=== PATIENT | male | born 1965 | race Caucasian/White ===

== ENCOUNTER 2023-06-13 00:16 | Inpatient (IN) ==
--- NOTE | 2023-06-13 00:33 | Emergency Department Note ---
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 without intravenous contrast. CTDI is 37.51 mGy and DLP is 702.46 mGy-cm. Automated exposure control was utilized for the study. A dose lowering technique was utilized adhering to the principles of ALARA. COMPARISON: No relevant prior studies available. FINDINGS: The mandible is intact. Intact maxillary alveolus. The orbital rims and floors are intact. The intraorbital contents are grossly unremarkable. Intact nasal bones, nasal septum, and maxillary spines. The zygomatic arches and pterygoid processes are intact. RIGHT facial soft tissue swelling. Posterior scalp soft tissue swelling. IMPRESSION: No facial bone fracture. RIGHT facial soft tissue swelling. Posterior scalp soft tissue swelling. Electronically signed by: Issa Lopez MD 06/13/23 01:[address] 06/13/23 00:27 Exam(s): CT HEAD Without Contrast EXAM: CT Head Without Intravenous Contrast CLINICAL HISTORY: Reason for exam: Trauma. TECHNIQUE: Axial computed tomography images of the head/brain without intravenous contrast. CTDI is 37.51 mGy and DLP is 702.46 mGy-cm. Automated exposure control was utilized for the study. A dose lowering technique was utilized adhering to the principles of ALARA. COMPARISON: No relevant prior studies available. FINDINGS: No acute intracranial hemorrhage. No midline shift or mass effect. Posterior scalp soft tissue swelling. The territorial malave-white matter differentiation is maintained throughout. Age-related cerebral volume loss. Periventricular and subcortical white matter hypoattenuation, consistent with chronic microangiopathy. The visualized orbits appear grossly unremarkable. The calvarium is intact. The visualized paranasal sinuses and mastoid air cells are grossly clear. IMPRESSION: No acute intracranial hemorrhage, midline shift, or mass effect. Posterior scalp soft tissue swelling. Electronically signed by: Issa Lopez MD 06/13/23 01:[address] 06/13/23 00:27 Exam(s): CT L SPINE With Contrast IV Amt: 91 ML OPTIRAY 320 EXAM: CT Lumbar Spine With Intravenous Contrast CLINICAL HISTORY: Reason for exam: Trauma. TECHNIQUE: Axial computed tomography images of the lumbar spine with intravenous contrast. CTDI is 27.89 mGy and DLP is 1444.7 mGy-cm. Automated exposure control was utilized for the study. A dose lowering technique was utilized adhering to the principles of ALARA. CONTRAST: Patient received 91 ML OPTIRAY 320 of IV contrast COMPARISON: No relevant prior studies available. FINDINGS: The vertebral body heights are maintained. The lumbar lordosis is preserved. There is no spondylolisthesis. The posterior elements are maintained, without evidence of acute fracture. The pedicles are intact. Multilevel lumbar spondylosis and degenerative disc disease. IMPRESSION: No acute fracture or subluxation of the lumbar spine. Electronically signed by: Issa Lopez MD 06/13/23 01:[address] 06/13/23 00:27 Exam(s): CT T SPINE IV Amt: 91 ML OPTIRAY 320 EXAM: CT Thoracic Spine With Intravenous Contrast CLINICAL HISTORY: Reason for exam: Trauma. TECHNIQUE: Axial computed tomography images of the thoracic spine with intravenous contrast. CTDI is 27.89 mGy and DLP is 1444.7 mGy-cm. Automated exposure control was utilized for the study. A dose lowering technique was utilized adhering to the principles of ALARA. CONTRAST: Patient received 91 ML OPTIRAY 320 of IV contrast COMPARISON: No relevant prior studies available. FINDINGS: The vertebral body heights are maintained. The lumbar lordosis is preserved. There is no spondylolisthesis. The posterior elements are maintained, without evidence of acute fracture. The pedicles are intact. Multilevel lumbar spondylosis and degenerative disc disease. IMPRESSION: No acute fracture or subluxation of the lumbar spine. Electronically signed by: Issa Lopez MD 06/13/23 01:34 AM Discharge Plan Visit Data Chief Complaint: Confusion Stated Complaint: AMS, Fall ED Provider: Wilmer Deras Discharge Problem: Delirium tremens Patient Disposition: Admitted As Inpatient Discharge Instructions Interventions: ED Discharge Assessment Last Done: 06/13/23 04:19
[2023-06-13 00:47] LABS: iSTAT Creatinine 1.9 mg/dl (0.6-1.3); iSTAT Hemoglobin 15.6 g/dl (14.0-18.0); iSTAT Ionized Calcium 1.11 mmol/l (1.12-1.32); iSTAT Potassium 2.8 mmol/L (3.3-5.0)
[2023-06-13] MEDS: OPTIRAY 320 100ml IV ONE (01:06)
[2023-06-13 01:17] LABS: Albumin Globulin Ratio 1.2 (0.9-2); Albumin Level 4.5 gm/dl (3.4-5.0); BUN Creatinine Ratio 11.2 (10-20); Bilirubin,Total 1.9 mg/dl (0.2-1.0); Calcium 9.7 mg/dl (8.6-10.3); Creatinine Clr Calc Pharmacy 57.7 ml/min; Est GFR (African American) 48.4 ml/min; Est GFR (Non-African American) 41.7 ml/min; Globulin 3.8 gm/dl (2.5-4.0); Potassium 2.9 mmol/L (3.5-5.1); Total Protein 8.3 gm/dl (6.0-8.3)
[2023-06-13] MEDS: SODIUM CHLORIDE 0.9% 1,000 ML IV ONE (01:32)
--- NOTE | 2023-06-13 01:33 | CT Scan Report ---
Exam(s): CT C SPINE EXAM: CT Cervical Spine Without Intravenous Contrast CLINICAL HISTORY: Reason for exam: Trauma. TECHNIQUE: Axial computed tomography images of the cervical spine without intravenous contrast. CTDI is 37.51 mGy and DLP is 702.46 mGy-cm. Automated exposure control was utilized for the study. A dose lowering technique was utilized adhering to the principles of ALARA. COMPARISON: No relevant prior studies available. FINDINGS: The vertebral body heights are maintained. The craniocervical junction is intact. The atlanto-dens interval is maintained. The dens is intact. There is no spondylolisthesis. Multilevel cervical spondylosis and degenerative disc disease. Straightening of the cervical lordosis. The unenhanced neck soft tissues are grossly unremarkable. The visualized lung apices are grossly clear. IMPRESSION: No acute fracture or subluxation of the cervical spine. Electronically signed by: Issa Lopez MD 06/13/23 01:32 AM
--- NOTE | 2023-06-13 01:33 | CT Scan Report ---
Exam(s): CT HEAD Without Contrast EXAM: CT Head Without Intravenous Contrast CLINICAL HISTORY: Reason for exam: Trauma. TECHNIQUE: Axial computed tomography images of the head/brain without intravenous contrast. CTDI is 37.51 mGy and DLP is 702.46 mGy-cm. Automated exposure control was utilized for the study. A dose lowering technique was utilized adhering to the principles of ALARA. COMPARISON: No relevant prior studies available. FINDINGS: No acute intracranial hemorrhage. No midline shift or mass effect. Posterior scalp soft tissue swelling. The territorial malave-white matter differentiation is maintained throughout. Age-related cerebral volume loss. Periventricular and subcortical white matter hypoattenuation, consistent with chronic microangiopathy. The visualized orbits appear grossly unremarkable. The calvarium is intact. The visualized paranasal sinuses and mastoid air cells are grossly clear. IMPRESSION: No acute intracranial hemorrhage, midline shift, or mass effect. Posterior scalp soft tissue swelling. Electronically signed by: Issa Lopez MD 06/13/23 01:31 AM
--- NOTE | 2023-06-13 01:34 | CT Scan Report ---
Exam(s): CT L SPINE With Contrast IV Amt: 91 ML OPTIRAY 320 EXAM: CT Lumbar Spine With Intravenous Contrast CLINICAL HISTORY: Reason for exam: Trauma. TECHNIQUE: Axial computed tomography images of the lumbar spine with intravenous contrast. CTDI is 27.89 mGy and DLP is 1444.7 mGy-cm. Automated exposure control was utilized for the study. A dose lowering technique was utilized adhering to the principles of ALARA. CONTRAST: Patient received 91 ML OPTIRAY 320 of IV contrast COMPARISON: No relevant prior studies available. FINDINGS: The vertebral body heights are maintained. The lumbar lordosis is preserved. There is no spondylolisthesis. The posterior elements are maintained, without evidence of acute fracture. The pedicles are intact. Multilevel lumbar spondylosis and degenerative disc disease. IMPRESSION: No acute fracture or subluxation of the lumbar spine. Electronically signed by: Issa Lopez MD 06/13/23 01:33 AM
--- NOTE | 2023-06-13 01:35 | CT Scan Report ---
Exam(s): CT CHEST With Contrast IV Amt: 91 ML OPTIRAY 320 EXAM: CT Chest With Intravenous Contrast CLINICAL HISTORY: Reason for exam: Trauma. TECHNIQUE: Axial computed tomography images of the chest with intravenous contrast. CTDI is 27.89 mGy and DLP is 1444.7 mGy-cm. Automated exposure control was utilized for the study. A dose lowering technique was utilized adhering to the principles of ALARA. CONTRAST: Patient received 91 ML OPTIRAY 320 of IV contrast COMPARISON: No relevant prior studies available. FINDINGS: Lungs: Unremarkable. No mass. No consolidation. Pleural space: Unremarkable. No pneumothorax. No significant effusion. Heart: Unremarkable. No cardiomegaly. No significant pericardial effusion. No significant coronary artery calcifications. Bones/joints: Degenerative changes of the spine. No acute fracture. No dislocation. Soft tissues: Unremarkable. Vasculature: Atherosclerotic changes of the aorta. No thoracic aortic aneurysm. Lymph nodes: Unremarkable. No enlarged lymph nodes. IMPRESSION: No acute findings in the chest. Electronically signed by: Issa Lopez MD 06/13/23 01:34 AM
--- NOTE | 2023-06-13 01:35 | CT Scan Report ---
Exam(s): CT T SPINE IV Amt: 91 ML OPTIRAY 320 EXAM: CT Thoracic Spine With Intravenous Contrast CLINICAL HISTORY: Reason for exam: Trauma. TECHNIQUE: Axial computed tomography images of the thoracic spine with intravenous contrast. CTDI is 27.89 mGy and DLP is 1444.7 mGy-cm. Automated exposure control was utilized for the study. A dose lowering technique was utilized adhering to the principles of ALARA. CONTRAST: Patient received 91 ML OPTIRAY 320 of IV contrast COMPARISON: No relevant prior studies available. FINDINGS: The vertebral body heights are maintained. The lumbar lordosis is preserved. There is no spondylolisthesis. The posterior elements are maintained, without evidence of acute fracture. The pedicles are intact. Multilevel lumbar spondylosis and degenerative disc disease. IMPRESSION: No acute fracture or subluxation of the lumbar spine. Electronically signed by: Issa Lopez MD 06/13/23 01:34 AM
--- NOTE | 2023-06-13 01:36 | CT Scan Report ---
Exam(s): CT ABDOMEN + PELVIS With Contrast IV Amt: 91 ML OPTIRAY 320 EXAM: CT Abdomen and Pelvis With Intravenous Contrast CLINICAL HISTORY: Reason for exam: Trauma. TECHNIQUE: Axial computed tomography images of the abdomen and pelvis with intravenous contrast. CTDI is 27.89 mGy and DLP is 1444.7 mGy-cm. Automated exposure control was utilized for the study. A dose lowering technique was utilized adhering to the principles of ALARA. CONTRAST: Patient received 91 ML OPTIRAY 320 of IV contrast COMPARISON: No relevant prior studies available. FINDINGS: Lung bases: Unremarkable. No mass. No consolidation. ABDOMEN: Liver: Hepatic steatosis. Gallbladder and bile ducts: Unremarkable. No calcified stones. No ductal dilation. Pancreas: Unremarkable. No mass. No ductal dilation. Spleen: Unremarkable. No splenomegaly. Adrenals: Unremarkable. No mass. Kidneys and ureters: Unremarkable. No solid mass. No hydronephrosis. Stomach and bowel: Unremarkable. No obstruction. No mucosal thickening. PELVIS: Appendix: No findings to suggest acute appendicitis. Bladder: Unremarkable. No mass. Reproductive: Unremarkable as visualized. ABDOMEN and PELVIS: Intraperitoneal space: Unremarkable. No free air. No significant fluid collection. Bones/joints: Degenerative changes of the spine. No acute fracture. No dislocation. Soft tissues: Fat-containing bilateral inguinal hernias. Vasculature: Atherosclerotic changes of the aorta. No abdominal aortic aneurysm. Lymph nodes: Unremarkable. No enlarged lymph nodes. IMPRESSION: No acute findings in the abdomen or pelvis. Electronically signed by: Issa Lopez MD 06/13/23 01:35 AM
--- NOTE | 2023-06-13 01:37 | CT Scan Report ---
Exam(s): CT FACIAL Without Contrast EXAM: CT Maxillofacial Without Intravenous Contrast CLINICAL HISTORY: Reason for exam: Trauma. TECHNIQUE: Axial computed tomography images of the face without intravenous contrast. CTDI is 37.51 mGy and DLP is 702.46 mGy-cm. Automated exposure control was utilized for the study. A dose lowering technique was utilized adhering to the principles of ALARA. COMPARISON: No relevant prior studies available. FINDINGS: The mandible is intact. Intact maxillary alveolus. The orbital rims and floors are intact. The intraorbital contents are grossly unremarkable. Intact nasal bones, nasal septum, and maxillary spines. The zygomatic arches and pterygoid processes are intact. RIGHT facial soft tissue swelling. Posterior scalp soft tissue swelling. IMPRESSION: No facial bone fracture. RIGHT facial soft tissue swelling. Posterior scalp soft tissue swelling. Electronically signed by: Issa Lopez MD 06/13/23 01:36 AM
[2023-06-13 02:00] LABS: Base Excess VBG -3.3 mEq/L; HCO3 VBG 22 mmol/L; Oxygen Saturation VBG < 60.0 %; PCO2 VBG 40 mmHg (38-50); PO2 VBG 33 mmHg; pH VBG 7.35 (7.36-7.41)
[2023-06-13 02:06] LABS: Appearance Urine Clear (Clear); Bacteria Urine Automated Negative (Negative); Bilirubin Urine Negative (Negative); Blood Urine 3+ (Negative); Color Urine Yellow; Glucose Urine UA Negative (Negative); Ketones Urine 1+ (Negative); Leukocyte Esterase Urine Negative (Negative); Nitrite Urine Negative (Negative); Protein Urine 1+ (Negative); RBC Urine Automated 0-4 /hpf (0-4); Specific Gravity Urine > 1.045 (1.000-1.030); Urobilinogen Urine Negative (Negative); pH Urine 6.5 (4.5-7.5)
[2023-06-13 02:25] LABS: Basophils # (auto) 0.04 K/uL (0.00-0.20); Basophils % (auto) 0.4 %; Eosinophils # (auto) 0.06 K/uL (0.00-0.50); Eosinophils % (auto) 0.7 %; Hematocrit (blood only) 44.6 % (42.0-52.0); Hemoglobin 15.2 g/dl (14.0-18.0); Immature Granulocytes # (auto) 0.12 K/uL (0.01-0.20); Immature Granulocytes % (auto) 1.3 %; Lymphocytes # (auto) 1.02 K/uL (1.20-3.40); Lymphocytes % (auto) 11.1 %; Mean Corpuscular Hemoglobin 34.3 pg (25.0-34.0); Mean Corpuscular Hgb Conc 34.1 g/dL (32.0-36.0); Mean Corpuscular Volume 100.7 fL (80.0-100.0); Monocytes # (auto) 0.69 K/uL (0.11-0.59); Monocytes % (auto) 7.5 %; Platelet Count 58 K/uL (130-400); Platelet Estimate Decreased (Normal); RDW Coefficient of Variation 12.9 % (11.5-14.5); RDW Standard Deviation 47.8 fL (36.4-46.3); Red Blood Count 4.43 M/uL (4.70-6.10); White Blood Count 9.23 K/ul (4.8-10.8)
[2023-06-13] MEDS: POTASSIUM CHLORIDE CRTAB 20 MEQ TABCR PO STA (02:28)
[2023-06-13] MEDS: DIPHTHER/TETAN/PERTUS Vaccine (Tdap, Adol/Adult) 0.5mL IM ONE (02:29)
[2023-06-13 02:30] LABS: Amphetamines+Metham, Urine Neg (Neg); Barbiturates, Urine Neg (Neg); Benzodiazepine, Urine Neg (Neg); Cocaine, Urine Neg (Neg); MDMA (Ecstacy), Urine Neg (Neg); Marijuana, Urine Neg (Neg); Methadone, Urine Neg (Neg); Opiate, Urine Neg (Neg); Phencyclidine, Urine Neg (Neg)
[2023-06-13 02:49] LABS: INR 1.1 (0.9-1.1); Prothrombin Time 12.2 Seconds (9.0-12.0)
[2023-06-13 03:16] LABS: Thyroid Stimulating Hormone 5.929 uIu/ml (0.300-4.500)
[2023-06-13 03:17] LABS: Adenovirus PCR Not Detected (NotDetected); Bordetella parapertussis PCR Not Detected (NotDetected); Bordetella pertussis PCR Not Detected (NotDetected); Chlamydia pneumoniae PCR Not Detected (NotDetected); Coronavirus 229E PCR Not Detected (NotDetected); Coronavirus CoV-2 (COVID19)PCR Not Detected (NotDetected); Coronavirus HKU1 PCR Not Detected (NotDetected); Coronavirus NL63 PCR Not Detected (NotDetected); Coronavirus OC43PCR Not Detected (NotDetected); Human Metapneumovirus PCR Not Detected (NotDetected); Influenza A PCR Not Detected (NotDetected); Influenza B PCR Not Detected (NotDetected); Mycoplasma pneumoniae PCR Not Detected (NotDetected); Parainfluenza Virus 1 PCR Not Detected (NotDetected); Parainfluenza Virus 2 PCR Not Detected (NotDetected); Parainfluenza Virus 3 PCR Not Detected (NotDetected); Parainfluenza Virus 4 PCR Not Detected (NotDetected); Respiratory Syncytial VirusPCR Not Detected (NotDetected); Rhinovirus/Enterovirus PCR Not Detected (NotDetected)
[2023-06-13] MEDS: POTASSIUM CHLORIDE 20 MEQ in LACTATED RINGER'S 1,000 ML IV STA (03:17)
[2023-06-13] MEDS: THIAMINE HCL 100 MG in SYRINGE 9 ML IV STA (03:17)
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
[2023-06-13] MEDS: LACTATED RINGER'S 1,000 ML IV ONE (03:23)
[2023-06-13] MEDS ORDERED: oxyCODONE HCL IR 5 MG TAB (IMMEDIATE RELEASE) PO PRN (03:25)
[2023-06-13] MEDS ORDERED: LORazepam 0.5 MG TAB PO PRN (03:25)
[2023-06-13] MEDS ORDERED: PROMETHAZINE HCL 6.25 MG in SODIUM CHLORIDE 0.9% 50 ML IV PRN (03:25)
[2023-06-13] MEDS ORDERED: LORazepam 0.25 MG in SYRINGE 0.125 ML IV STA (03:28)
[2023-06-13] MEDS ORDERED: LORazepam 1 MG in SYRINGE 0.5 ML IV PRN ×2 (03:42→04:10)
[2023-06-13 03:48] LABS: T4 Free Thyroxine 0.9 ng/dl (0.61-1.60)
[2023-06-13] MEDS: LORazepam 1 MG/1 ML SYR ED Inj Use IV STA (04:02)
[2023-06-13] MEDS ORDERED: LORazepam 2 MG in SYRINGE 1 ML IV PRN ×2 (04:10→10:05)
[2023-06-13] MEDS ORDERED: Ativan IV Alcohol Withdrawal--Active Protocol IV PRN (04:10)
[2023-06-13] MEDS ORDERED: GABAPENTIN 1200MG ALCOHOL WITHDRAWAL LOAD PO STA (04:10)
[2023-06-13] MEDS ORDERED: GLUCOSE 40% GEL 15 GM TUBE PO PRN (04:18)
[2023-06-13] MEDS ORDERED: GLUCOSE 10 TAB/TUBE PO PRN (04:18)
[2023-06-13] MEDS ORDERED: GLUCAGON FOR INJ 1 MG VIAL SQ PRN (04:18)
[2023-06-13] MEDS ORDERED: CARBOHYDRATES FOR HYPOGLYCEMIA PO PRN (04:18)
[2023-06-13] MEDS ORDERED: DEXTROSE 50% 50 ML SYRINGE IV PRN (04:18)
[2023-06-13] MEDS: LORazepam 3 MG in SYRINGE 1.5 ML IV PRN (04:33)
[2023-06-13 04:47] LABS: Base Excess VBG -1.1 mEq/L; HCO3 VBG 23 mmol/L; Oxygen Saturation VBG 85.7 %; PCO2 VBG 34 mmHg (38-50); PO2 VBG 51 mmHg; pH VBG 7.43 (7.36-7.41)
[2023-06-13] MEDS: GABAPENTIN 600 MG TAB PO STA (04:52)
[2023-06-13] MEDS: METOPROLOL TARTRATE 1 MG/ML VIAL IV STA (05:06)
[2023-06-13] MEDS: LORazepam 1 MG in SYRINGE 0.5 ML IV ONE ×2 (05:18→05:36)
[2023-06-13] MEDS ORDERED: chlordiazePOXIDE ALCOHOL WITHDRAWL 50MG PO STA (05:34)
[2023-06-13] MEDS: diazePAM 5 MG/ML 10ML VIAL IV STA ×2 (05:40→05:50)
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
[2023-06-13] MEDS ORDERED: STAT IV Infusion **Titration per Protocol STA (06:37)
[2023-06-13] MEDS: dexMEDEtomidine 200 MCG/50 ML BAG IV SCH (06:51)
[2023-06-13] MEDS: LACTATED RINGER'S 1,000 ML IV SCH (06:52)
[2023-06-13 07:19] LABS: Estimated Average Glucose 128 mg/dl; Hemoglobin A1C 6.1 % (4.5-5.6)
[2023-06-13] MEDS: POTASSIUM CHLORIDE / WTR 10 MEQ/100 ML PLCT IV SCH (07:38)
[2023-06-13] MEDS: chlordiazePOXIDE HCl 25 MG CAP PO SCH (07:39)
[2023-06-13 08:02] LABS: Acetaminophen < 3 ug/ml (10-30); Salicylate < 3.0 mg/dl (3.0-30)
[2023-06-13 08:04] LABS: BUN Creatinine Ratio 13.8 (10-20); Calcium 9.1 mg/dl (8.6-10.3); Creatinine Clr Calc Pharmacy 88.6 ml/min; Est GFR (African American) 81.1 ml/min; Magnesium 1.5 mg/dl (1.7-2.4); Potassium 3.9 mmol/L (3.5-5.1)
[2023-06-13] MEDS: INSULIN ASPART PER UNIT CHARGE SC SCH ×2 (08:25→10:39)
[2023-06-13] MEDS: amLODIPine BESYLATE 5 MG TAB PO STA (08:25)
[2023-06-13] MEDS: LACTATED RINGER'S 500 ML IV ONE (08:26)
[2023-06-13] MEDS: MAGNESIUM SULFATE / D5W 1 GM/100 ML BAG IV SCH (08:29)
[2023-06-13] MEDS: SODIUM CHLORIDE 0.9% 500 ML IV ONE (09:30)
[2023-06-13 09:41] LABS: Bilirubin Direct 0.7 mg/dl (0-0.2)
[2023-06-13] MEDS: THIAMINE HCL 500 MG in SODIUM CHLORIDE 0.9% 50 ML IV SCH (09:59)
[2023-06-13] MEDS ORDERED: LORazepam 3 MG in SYRINGE 1.5 ML IV PRN (10:05)
[2023-06-13] MEDS: FOLIC ACID 1 MG TAB PO SCH (10:10)
[2023-06-13] MEDS ORDERED: GABAPENTIN 600 MG TAB PO SCH (10:15)
[2023-06-13] MEDS: FOLIC ACID 1 MG in SYRINGE 9.8 ML IV SCH (10:51)
[2023-06-13] MEDS: ALBUT/IPRATROP 3MG/0.5MG NEB 3 ML VIAL NEB STA (13:50)
[2023-06-13 14:08] LABS: iSTAT Arterial Blood Gas HCO3 25 meg/L (19-24); iSTAT Arterial Blood Gas pCO2 47 mmHg (35-46); iSTAT Arterial Blood Gas pH 7.33 (7.35-7.45); iSTAT Arterial Blood Gas pO2 37 mmHg (80-95); iSTAT Carbon Dioxide 26 mmol/L (24-31); iSTAT Hematocrit 33 % (42-52); iSTAT Hemoglobin 11.2 g/dl (14.0-18.0); iSTAT Potassium 3.4 mmol/L (3.3-5.0); iSTAT Sodium 139 mmol/L (135-144)
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
[2023-06-13] MEDS: diazePAM 5 MG/ML 10ML VIAL ONE (20:06)
--- NOTE | 2023-06-13 23:05 | Electroencephalogram ---
EEG Procedure Note Date of Service June 13, 2023 Start / End Times Start Time: 08:55 End Time: 09:15 Referring Physician Alex Jimenez History A 58 year old male with syncope. EEG performed for evaluation of epileptiform activity. Home Medication List Medication Instructions Recorded Confirmed Type aspirin 325 mg tablet 325 mg PO BID PRN .headache/pain 06/13/23 06/13/23 History Inpatient Medication List Dexmedetomidine/Sodium Chloride (Precedex) 200 mcg in 50 mls @ 7.523 mls/hr IV .Q6H39M [facility]; Protocol Stop: 06/17/23 06:44 Last Admin: 06/13/23 19:35 Dose: 0.3 mcg/kg/hr, 7.5 mls/hr Documented By: Dedrick Co-signed By: LILIA Titration: 06/13/23 19:35 Dose: Infused Documented By: Dedrick Co-signed By: LILIA Titration: 06/13/23 19:09 Dose: 0.3 mcg/kg/hr, 7.5 mls/hr Documented By: DAGOBERTO Co-signed By: [id number] Admin: 06/13/23 13:04 Dose: 0.3 mcg/kg/hr, 7.5 mls/hr Documented By: DAGOBERTO Co-signed By: CHICHO Titration: 06/13/23 13:04 Dose: Infused Documented By: DAGOBERTO Co-signed By: CHICHO Titration: 06/13/23 10:38 Dose: 0.3 mcg/kg/hr, 7.5 mls/hr Documented By: Admin: 06/13/23 10:00 Dose: 0.2 mcg/kg/hr, 5 mls/hr Documented By: CHICHO Co-signed By: DAGOBERTO Titration: 06/13/23 10:00 Dose: Infused Documented By: CHICHO Co-signed By: DAGOBERTO Titration: 06/13/23 07:53 Dose: 0 mcg/kg/hr, 0 mls/hr Documented By: Titration: 06/13/23 07:39 Dose: 0.7 mcg/kg/hr, 17.6 mls/hr Documented By: Titration: 06/13/23 07:21 Dose: 0.6 mcg/kg/hr, 15 mls/hr Documented By: Titration: 06/13/23 07:00 Dose: 0.5 mcg/kg/hr, 12.5 mls/hr Documented By: Admin: 06/13/23 06:51 Dose: 0.4 mcg/kg/hr, 10 mls/hr Documented By: LILIA Co-signed By: FATIMAH Thiamine HCl 500 mg/ Sodium (Chloride) 55 mls @ 210 mls/hr IV Q8H [facility] Stop: 06/16/23 02:16 Last Infusion: 06/13/23 18:13 Dose: Infused Documented By: Admin: 06/13/23 17:51 Dose: 210 mls/hr Documented By: Infusion: 06/13/23 10:38 Dose: Infused Documented By: Admin: 06/13/23 09:59 Dose: 210 mls/hr Documented By: CHICHO Folic Acid 1 mg/ Syringe 10 mls @ 5 mls/min IV Q24H [facility] Stop: 07/13/23 10:59 Last Admin: 06/13/23 10:51 Dose: 5 mls/min Documented By: DAGOBERTO Insulin Aspart (Insulin Aspart Per Unit Charge) 0 units SC ACHS [facility] Stop: 07/13/23 09:59 Last Admin: 06/13/23 21:41 Dose: Not Given Documented By: [id number] Admin: 06/13/23 16:37 Dose: Not Given Documented By: Admin: 06/13/23 10:50 Dose: Not Given Documented By: Admin: 06/13/23 10:39 Dose: Not Given Documented By: DAGOBERTO Discontinued Medications Albuterol (Albut/Ipratrop 3mg/0.5mg Neb 3 Ml Vial) 3 ml NEB NOW STA; Protocol Stop: 06/13/23 13:41 Last Admin: 06/13/23 13:50 Dose: 3 ml Documented By: ORTEGA Amlodipine Besylate (Amlodipine Besylate 5 Mg Tab) 2.5 mg PO NOW STA Stop: 06/13/23 03:23 Last Admin: 06/13/23 08:25 Dose: Not Given Documented By: DAGOBERTO Chlordiazepoxide HCl (Chlordiazepoxide Hcl 25 Mg Cap) 50 mg PO Q6H [facility] Stop: 06/13/23 23:46 Last Admin: 06/13/23 07:39 Dose: Not Given Documented By: DAGOBERTO Diazepam (Diazepam 5 Mg/Ml 10ml Vial) 20 mg IV NOW STA Stop: 06/13/23 05:50 Last Admin: 06/13/23 05:40 Dose: 20 mg Documented By: DEN Diazepam (Diazepam 5 Mg/Ml 10ml Vial) 10 mg IV NOW STA Stop: 06/13/23 05:55 Last Admin: 06/13/23 05:50 Dose: 10 mg Documented By: DEN Diazepam (Diazepam 5 Mg/Ml 10ml Vial) Confirm Administered Dose 50 mg .ROUTE .STK-MED ONE Stop: 06/13/23 05:41 Last Admin: 06/13/23 20:06 Dose: Not Given Documented By: [id number] Diphtheria/Pertussis/Tetanus Vacc (Diphther/Tetan/Pertus Vaccine (Tdap, Adol/Adult) 0.5ml) 0.5 ml IM .ONCE ONE Stop: 06/13/23 01:52 Last Admin: 06/13/23 02:29 Dose: 0.5 ml Documented By: DEN Folic Acid (Folic Acid 1 Mg Tab) 1 mg PO QAM [facility] Stop: 07/13/23 08:59 Last Admin: 06/13/23 10:10 Dose: Not Given Documented By: DAGOBERTO Gabapentin (Gabapentin 600 Mg Tab) 1,200 mg PO NOW STA Stop: 06/13/23 04:14 Last Admin: 06/13/23 04:52 Dose: 1,200 mg Documented By: DEN Sodium Chloride (Nss) 1,000 mls @ 999 mls/hr IV .Q1H1M ONE Stop: 06/13/23 02:27 Last Infusion: 06/13/23 02:59 Dose: Infused Documented By: Admin: 06/13/23 01:32 Dose: 999 mls/hr Documented By: DEN Lactated Ringer's (Lr) 1,000 mls @ 500 mls/hr IV .Q2H ONE Stop: 06/13/23 04:30 Last Admin: 06/13/23 03:23 Dose: Not Given Documented By: DEN Potassium Chloride 20 meq/ (Lactated Ringer's) 1,010 mls @ 500 mls/hr IV .Q2H2M STA Stop: 06/13/23 04:47 Last Infusion: 06/13/23 05:29 Dose: Infused Documented By: Admin: 06/13/23 03:17 Dose: 500 mls/hr Documented By: DEN Thiamine HCl 100 mg/ Syringe 10 mls @ 2 mls/min IV NOW STA Stop: 06/13/23 02:55 Last Admin: 06/13/23 03:17 Dose: 2 mls/min Documented By: DEN Lorazepam 3 mg/ Syringe 3 mls @ 2 mls/min IV ONCE PRN; Protocol PRN Reason: EtOH Withdrawal AWSS Score 10+ Last Admin: 06/13/23 04:33 Dose: 2 mls/min Documented By: DEN Lorazepam 1 mg/ Syringe 1 mls @ 2 mls/min IV NOW ONE Stop: 06/13/23 05:16 Last Admin: 06/13/23 05:18 Dose: 2 mls/min Documented By: DEN Lactated Ringer's (Lr) 1,000 mls @ 75 mls/hr IV .[id number] [facility] Stop: 06/14/23 05:29 Last Infusion: 06/13/23 13:46 Dose: Infused Documented By: Admin: 06/13/23 10:39 Dose: Not Given Documented By: Infusion: 06/13/23 10:31 Dose: 75 mls/hr Documented By: Admin: 06/13/23 06:52 Dose: 200 mls/hr Documented By: SG Potassium Chloride (K Moody / Wtr) 10 meq in 100 mls @ 100 mls/hr IV Q1H [facility] Stop: 06/13/23 09:59 Last Admin: 06/13/23 09:28 Dose: Not Given Documented By: Infusion: 06/13/23 09:28 Dose: Infused Documented By: Admin: 06/13/23 08:24 Dose: 100 mls/hr Documented By: Infusion: 06/13/23 08:24 Dose: Infused Documented By: Admin: 06/13/23 07:38 Dose: 100 mls/hr Documented By: DAGOBERTO Lorazepam 1 mg/ Syringe 1 mls @ 2 mls/min IV NOW ONE Stop: 06/13/23 05:32 Last Admin: 06/13/23 05:36 Dose: 2 mls/min Documented By: DEN Magnesium Sulfate/Dextrose (Magnesium Sulfate / D5w) 1 gm in 100 mls @ 50 mls/hr IV Q2H [facility] Stop: 06/13/23 12:14 Last Infusion: 06/13/23 11:33 Dose: Infused Documented By: Admin: 06/13/23 09:30 Dose: 50 mls/hr Documented By: Infusion: 06/13/23 09:30 Dose: Infused Documented By: Admin: 06/13/23 08:29 Dose: 50 mls/hr Documented By: DAGOBERTO Lactated Ringer's (Lr) 500 mls @ 999 mls/hr IV .Q31M ONE Stop: 06/13/23 08:51 Last Infusion: 06/13/23 09:07 Dose: Infused Documented By: Admin: 06/13/23 08:26 Dose: 999 mls/hr Documented By: DAGOBERTO Sodium Chloride (Nss) 500 mls @ 999 mls/hr IV .Q31M ONE Stop: 06/13/23 09:51 Last Infusion: 06/13/23 10:10 Dose: Infused Documented By: Admin: 06/13/23 09:30 Dose: 999 mls/hr Documented By: MARY Insulin Aspart (Insulin Aspart Per Unit Charge) 0 units SC ACHS [facility] Stop: 07/13/23 04:17 Last Admin: 06/13/23 08:25 Dose: Not Given Documented By: DAGOBERTO Ioversol (Optiray 320 100ml) 100 ml IV ONCE ONE Stop: 06/13/23 01:07 Last Admin: 06/13/23 01:06 Dose: 91 ml Documented By: OMAYRA Lorazepam (Lorazepam 1 Mg/1 Ml Syr Ed Inj Use) 0.25 mg IV ONE STA Stop: 06/13/23 03:56 Last Admin: 06/13/23 04:02 Dose: 0.25 mg Documented By: DEN Metoprolol Tartrate (Metoprolol Tartrate 1 Mg/Ml Vial) 2.5 mg IV NOW STA Stop: 06/13/23 04:13 Last Admin: 06/13/23 05:06 Dose: 2.5 mg Documented By: DEN Potassium Chloride (Potassium Chloride Crtab 20 Meq Tabcr) 40 meq PO NOW STA Stop: 06/13/23 02:10 Last Admin: 06/13/23 02:28 Dose: 40 meq Documented By: DEN Description This is a 21 electrode EEG with a single channel dedicated to limited EKG. The electrodes were placed in accordance with the International 10-20 system. REPORT: At the onset of the EEG the patient is awake. The background is symmetric. The posterior dominant rhythm is 10-11 Hz. Anterior there is low amplitude beta activity. Drowsiness is characterized by increased theta acivtiy and decreased myogenic artifact. Photic stimulation does not induce any abnormalities. Interpretation IMPRESSION: This is a normal awake and drowsy routine EEG. There is no evidence of epileptiform activity.
[2023-06-14] MEDS ORDERED: GABAPENTIN 600 MG TAB PO SCH (00:15)
[2023-06-14 04:50] LABS: Basophils # (auto) 0.02 K/uL (0.00-0.20); Basophils % (auto) 0.3 %; Eosinophils % (auto) 2.9 %; Hemoglobin 12.4 g/dl (14.0-18.0); Immature Granulocytes # (auto) 0.02 K/uL (0.01-0.20); Immature Granulocytes % (auto) 0.3 %; Lymphocytes # (auto) 1.15 K/uL (1.20-3.40); Lymphocytes % (auto) 16.5 %; Mean Corpuscular Hemoglobin 34.6 pg (25.0-34.0); Mean Corpuscular Hgb Conc 35.4 g/dL (32.0-36.0); Mean Corpuscular Volume 97.8 fL (80.0-100.0); Mean Platelet Volume 11.3 fL (9.4-12.4); Monocytes # (auto) 0.88 K/uL (0.11-0.59); Monocytes % (auto) 12.6 %; Neutrophils # (auto) 4.71 K/uL (1.40-6.50); Neutrophils % (auto) 67.4 %; Platelet Count 35 K/uL (130-400); RDW Standard Deviation 46.3 fL (36.4-46.3); Red Blood Count 3.58 M/uL (4.70-6.10); White Blood Count 6.98 K/ul (4.8-10.8)
[2023-06-14 05:01] LABS: Albumin Globulin Ratio 1.4 (0.9-2); Albumin Level 3.6 gm/dl (3.4-5.0); BUN Creatinine Ratio 14.1 (10-20); Bilirubin,Total 2.1 mg/dl (0.2-1.0); Calcium 8.5 mg/dl (8.6-10.3); Creatinine Clr Calc Pharmacy 131.8 ml/min; Est GFR (Non-African American) 100.9 ml/min; Globulin 2.6 gm/dl (2.5-4.0); Magnesium 1.5 mg/dl (1.7-2.4); Potassium 3.3 mmol/L (3.5-5.1); Total Protein 6.2 gm/dl (6.0-8.3)
--- NOTE | 2023-06-14 05:38 | Electrocardiogram Report ---
Test Reason : Blood Pressure : / mmHG Vent. Rate : 130 BPM Atrial Rate : 130 BPM P-R Int : 152 ms QRS Dur : 092 ms QT Int : 382 ms P-R-T Axes : 000 062 063 degrees QTc Int : 562 ms Sinus tachycardia Abnormal ECG No previous ECGs available Confirmed by Kd Walden ([id number]) on 06/14/2023 5:38:34 AM Referred By: REFERRED SELF Confirmed By:Kd Walden
[2023-06-14] MEDS: PLASMA-LYTE A 1,000 ML IV ONE (06:07)
[2023-06-14] MEDS: POTASSIUM CHLORIDE / WTR 10 MEQ/100 ML PLCT IV SCH (06:07)
[2023-06-14] MEDS: MAGNESIUM SULFATE / D5W 1 GM/100 ML BAG IV SCH (06:07)
[2023-06-14] MEDS: POTASSIUM CHLORIDE 20 MEQ/15 ML UDC PO STA (06:12)
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
[2023-06-14] MEDS ORDERED: chlordiazePOXIDE HCl 25 MG CAP PO SCH (07:45)
[2023-06-14] MEDS: PLASMA-LYTE A 1,000 ML IV SCH (08:00)
[2023-06-14 08:55] LABS: Phosphorus 4.1 mg/dl (2.5-4.9)
[2023-06-14] MEDS ORDERED: amLODIPine BESYLATE 5 MG TAB PO SCH (09:00)
[2023-06-14] MEDS ORDERED: THIAMINE HCL 100 MG TAB PO SCH (09:00)
[2023-06-14] MEDS ORDERED: LORazepam 1 MG in SYRINGE 0.5 ML IV PRN (09:49)
[2023-06-14] MEDS ORDERED: LORazepam 2 MG in SYRINGE 1 ML IV PRN (09:49)
[2023-06-14] MEDS: amLODIPine BESYLATE 5 MG TAB PO SCH (10:56)
[2023-06-14] MEDS: GADOBUTROL 65ML VIAL IV ONE (12:24)
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
[2023-06-14] MEDS: ACETAMINOPHEN 500 MG TAB PO PRN (15:08)
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
[2023-06-14] MEDS: levETIRAcetam 500 MG TAB PO SCH (20:17)
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
[2023-06-15] MEDS ORDERED: GABAPENTIN 600 MG TAB PO SCH (04:15)
[2023-06-15 06:24] LABS: Hematocrit (blood only) 35.3 % (42.0-52.0); Hemoglobin 12.3 g/dl (14.0-18.0); Mean Corpuscular Hemoglobin 34.1 pg (25.0-34.0); Mean Corpuscular Hgb Conc 34.8 g/dL (32.0-36.0); Mean Corpuscular Volume 97.8 fL (80.0-100.0); Mean Platelet Volume 12.1 fL (9.4-12.4); Platelet Count 47 K/uL (130-400); RDW Coefficient of Variation 12.9 % (11.5-14.5); RDW Standard Deviation 46.3 fL (36.4-46.3); Red Blood Count 3.61 M/uL (4.70-6.10); White Blood Count 5.48 K/ul (4.8-10.8)
[2023-06-15 06:48] LABS: Albumin Globulin Ratio 1.3 (0.9-2); Albumin Level 3.6 gm/dl (3.4-5.0); BUN Creatinine Ratio 12.3 (10-20); Bilirubin,Total 1.8 mg/dl (0.2-1.0); Calcium 8.5 mg/dl (8.6-10.3); Creatinine Clr Calc Pharmacy 130.7 ml/min; Est GFR (African American) 115.1 ml/min; Est GFR (Non-African American) 99.4 ml/min; Globulin 2.8 gm/dl (2.5-4.0); Magnesium 1.6 mg/dl (1.7-2.4); Potassium 3.3 mmol/L (3.5-5.1); Total Protein 6.4 gm/dl (6.0-8.3)
[2023-06-15] MEDS ORDERED: chlordiazePOXIDE HCl 25 MG CAP PO SCH (07:45)
[2023-06-15] MEDS: FOLIC ACID 1 MG TAB PO SCH (09:03)
[2023-06-15] MEDS: POTASSIUM CHLORIDE CRTAB 20 MEQ TABCR PO ONE (09:03)
[2023-06-15] MEDS: MAGNESIUM SULFATE / D5W 1 GM/100 ML BAG IV SCH (09:03)
[2023-06-15] MEDS: MULTIVITAMIN TAB PO SCH (09:04)
[2023-06-15] MEDS: NSS + 20MEQ KCL 20 MEQ/1,000 ML BAG IV SCH (13:24)
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
[2023-06-15] MEDS: diphenhydrAMINE Capsule 25 MG CAP PO ONE (20:37)
[2023-06-16] MEDS ORDERED: levETIRAcetam 500 MG TAB PO SCH
[2023-06-16 04:26] LABS: BUN Creatinine Ratio 9.5 (10-20); Calcium 8.7 mg/dl (8.6-10.3); Est GFR (African American) 113.4 ml/min; Est GFR (Non-African American) 97.9 ml/min; Magnesium 1.5 mg/dl (1.7-2.4); Potassium 3.9 mmol/L (3.5-5.1)
[2023-06-16 04:46] LABS: Hematocrit (blood only) 36.5 % (42.0-52.0); Hemoglobin 12.6 g/dl (14.0-18.0); Mean Corpuscular Hemoglobin 34.1 pg (25.0-34.0); Mean Corpuscular Hgb Conc 34.5 g/dL (32.0-36.0); Mean Corpuscular Volume 98.9 fL (80.0-100.0); Mean Platelet Volume 11.2 fL (9.4-12.4); Platelet Count 62 K/uL (130-400); RDW Standard Deviation 47.5 fL (36.4-46.3); Red Blood Count 3.69 M/uL (4.70-6.10); White Blood Count 4.21 K/ul (4.8-10.8)
[2023-06-16] MEDS: MAGNESIUM SULFATE / D5W 1 GM/100 ML BAG IV SCH (05:31)
[2023-06-16] MEDS: THIAMINE HCL 100 MG TAB PO SCH (08:45)
[2023-06-16] MEDS ORDERED: THIAMINE HCL 100 MG in SYRINGE 9 ML IV SCH (09:00)
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
--- NOTE | 2023-06-16 13:56 | Discharge Summary ---
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 ingredients, as a lot of the pain medications have combination of NSAIDs and Tylenol. Seek immediate medical attention if your symptoms reoccur or worsen Please take all medications as instructed on discharge list below. Please call if you have any questions or problems. You can reach a [facility] hospitalist on duty at [facility] 24 hours a day by calling [phone] Pending Studies at Discharge: No Stand-Alone Forms: My [facility], Smoking Cessation Medications and DC Order Prescriptions: New amlodipine [Norvasc] 5 mg Tablet 2.5 mg PO QAM Qty: 30 0RF levetiracetam [Keppra] 500 mg Tablet 500 mg PO BID Qty: 14 0RF Mag 64 64 mg Tablet,Delayed Release (Dr/Ec) 64 mg PO BID Qty: 60 0RF thiamine HCl (vitamin B1) 100 mg Tablet 100 mg PO QAM Qty: 30 0RF folic acid 1 mg Tablet 1 mg PO QAM Qty: 30 0RF Discontinued aspirin 325 mg Tablet 325 mg PO BID PRN (Reason: .headache/pain) Discharge Orders: Discharge Order (Routine); Ordered 06/16/23 Ordered By: Edward Watts Admission Data Admit Date/Time: 06/13/23 03:21 Attending Provider: Edward Watts Admit Provider: Alex Jimenez Primary Care Provider: PCP,NO Other Providers: Alex Jimenez; Aislinn Chery; Yoseph Lr; Aislinn Taylor; Bhupendra Castillo; Anders Tabor; Manohar Carson; Charlie Merrill; Marium Allen; Fareed Blanca; Germán Lynne; Ruperto Dumont; Shad Flanagan; Helen Cabello; Chioma Piña; Charlie Barnett; Harshil Gomez; Kwabena Reyes
[2023-06-16] MEDS ORDERED: DIPHENHYDRAMINE 25 MG PO PRN (14:10)
[2023-06-16] MEDS ORDERED: GABAPENTIN 600 MG TAB PO SCH (16:15)
[2023-06-16] MEDS ORDERED: MAGNESIUM CHLORIDE W/CALCIUM 64MG DELAYED REL TAB PO SCH (21:00)
== END 2023-06-16 14:32 | disposition home or self-care (01) | DRG 897 ==
LOC: ED 00:16 → EDINP 03:21 → 1E 04:19